=== PATIENT | female | born 1965 | race Caucasian/White ===

== ENCOUNTER 2023-09-29 12:59 | Day surgery (SDC) | payer MEDICARE ==
[2023-09-29] MEDS ORDERED: BUPIVACAINE 0.5% VIAL IJ ONE (13:00)
[2023-09-29] MEDS ORDERED: Depo-Medrol 40 MG/ML IM ONE (13:00)
[2023-09-29] MEDS ORDERED: DIPRIVAN 200 MG/20 ML IV ONE ×2 (15:02→15:09)
[2023-09-29] MEDS ORDERED: Lactated Ringers 1,000 ML IV ONE (15:37)
--- NOTE | 2023-09-29 16:39 | XRAY ---
Indication: Left knee injection. Intraoperative fluoroscopy provided for 6 seconds. Single digital spot image submitted for interpretation demonstrates needle tip projecting over the left femur intercondylar notch. Small amount of contrast injected for needle tip placement. Correlate with intraoperative findings/report.
--- NOTE | 2023-09-29 16:39 | XRAY ---
Indication: Right knee injection. Intraoperative fluoroscopy provided for 6 seconds. Single digital spot image submitted for interpretation demonstrates needle tip projecting over the right femur intercondylar notch. Small amount of contrast injected for needle tip placement. Correlate with intraoperative findings/report.
--- NOTE | 2023-09-29 16:47 | XRAY ---
6 seconds of fluoroscopy was used in surgery for a left intra-articular knee injection.
--- NOTE | 2023-09-29 16:48 | XRAY ---
6 seconds of fluoroscopy was used in surgery for a right intra-articular knee injection.
== END 2023-09-29 15:35 | disposition home or self-care (01) ==
LOC: SDC-PAIN 12:59
PROVIDERS: ATTEND Psychiatry & Neurology Pain Medicine
DX: M17.0 Bilateral primary osteoarthritis of knee (principal)
CPT/HCPCS: 20610; 73560; 77002; J1030; J2704; Q9966